=== PATIENT | female | born 1985 | race Hispanic/Latino ===

== ENCOUNTER 2020-06-22 15:27 | Day surgery (SDC) | payer SELFPAY ==
[2020-06-22 16:08] VITALS: BMI 27.2
[2020-06-22] MEDS ORDERED: hydrALAZINE 20 MG/ML VIAL SLOW IVP PRN (16:34)
[2020-06-22] MEDS ORDERED: Lactated Ringer's 1,000 ML IV SCH ×2 (16:45)
[2020-06-22] MEDS ORDERED: Famotidine/PF 20 mg/2ml Vial SLOW IVP SCH (18:00)
[2020-06-22 18:24] LABS: #Eosinphils 0.1 10x3/uL (0.0-0.5); #Monocytes 0.7 10x3/uL (0.0-1.1); #Neutrophils 8.2 10x3/uL (1.5-8.4); %Basophils 0.4 % (0.0-2.0); %Eosinophils 1.1 % (0.0-6.0); %Lymphocytes 13.1 % (18.0-47.0); %Monocytes 6.3 % (0.0-10.0); %Neutrophils 77.8 % (40.0-75.0); Hemoglobin 10.6 g/dL (12.0-15.5); Mean Corpuscular HGB CONC 34.3 g/dL (32.0-36.0); Mean Corpuscular Hemoglobin 31.6 pg (27.0-33.0); Mean Corpuscular Volume 92.2 fl (81.6-98.3); Mean Platelet Volume 10.8 fl (7.4-10.4); Platelet Count 353 10x3/uL (150-450); RBC Distribution Width 13.9 % (11.5-14.5); Red Blood Cell (RBC) Count 3.35 10x6/uL (3.90-5.03); White Blood Cell (WBC) Count 10.5 10x3/uL (3.5-10.5)
[2020-06-22 19:04] LABS: ALT (SGPT) 30 U/L (8-55); AST (SGOT) 26 U/L (5-34); Albumin 3.5 g/dL (3.5-5.0); Alkaline Phosphatase 107 U/L (40-110); Anion Gap 14 mmol/L (10-20); BUN (Urea Nitrogen) 8 mg/dL (7.0-18.7); Bilirubin, Total 0.2 mg/dL (0.2-1.2); Calc. Creatinine Clearance 120 mL/min (70-130); Calcium 8.8 mg/dL (7.8-10.44); Carbon Dioxide 21 mmol/L (22-29); Chloride 106 mmol/L (98-107); Glucose 101 mg/dL (70-105); Potassium 3.7 mmol/L (3.5-5.1); Protein, Total 6.5 g/dL (6.0-8.3); Sodium 137 mmol/L (136-145)
[2020-06-22 19:43] LABS: Bilirubin Neg (Negative); Blood, Urine Negative (Negative); Clarity Clear (Clear); Glucose, Urine (Dipstick) Normal (Negative); Ketone, Urine Negative (Negative); Leukocyte Negative (Negative); Nitrite Negative (Negative); Protein, Urine (Dipstick) Negative (Neg-Trace); Urobilinogen Normal mg/dL (Less than 2)
[2020-06-23 05:54] LABS: SARS-CoV-2 PCR by NAA DETECTED (NotDetected)
== END 2020-06-22 20:35 | disposition home or self-care (01) ==
LOC: CSHLD/OP 15:27
PROVIDERS: ATTEND Family Medicine
DX: O98.512 Other viral diseases complicating pregnancy, second trimester (principal); U07.1 COVID-19; O21.2 Late vomiting of pregnancy; O99.891 Other specified diseases and conditions complicating pregnancy; R10.10 Upper abdominal pain, unspecified; Z3A.25 25 weeks gestation of pregnancy; Z79.82 Long term (current) use of aspirin
CPT/HCPCS: 80053; 81003; 85025; 87635; 96360; 96361; 99283; S0028; U0003; U0005

== ENCOUNTER 2020-07-11 22:20 | Emergency (ER) | payer SELFPAY ==
[2020-07-11 22:48] LABS: Bilirubin Neg (Negative); Blood, Urine Negative (Negative); Clarity Clear (Clear); Glucose, Urine (Dipstick) Normal (Negative); Ketone, Urine Negative (Negative); Leukocyte Negative (Negative); Nitrite Negative (Negative); Protein, Urine (Dipstick) Negative (Neg-Trace); Specific Gravity, Urine 1.005 (1.002-1.036); Urobilinogen Normal mg/dL (Less than 2)
[2020-07-11 23:05] LABS: #Basophils 0.1 10x3/uL (0.0-0.2); #Eosinphils 0.2 10x3/uL (0.0-0.5); #Monocytes 0.9 10x3/uL (0.0-1.1); #Neutrophils 9.5 10x3/uL (1.5-8.4); %Basophils 0.5 % (0.0-2.0); %Eosinophils 1.1 % (0.0-6.0); %Lymphocytes 17.5 % (18.0-47.0); %Monocytes 7.1 % (0.0-10.0); %Neutrophils 72.4 % (40.0-75.0); Hemoglobin 11.5 g/dL (12.0-15.5); Mean Corpuscular HGB CONC 34.2 g/dL (32.0-36.0); Mean Corpuscular Hemoglobin 32.2 pg (27.0-33.0); Mean Corpuscular Volume 94.1 fl (81.6-98.3); Mean Platelet Volume 10.2 fl (7.4-10.4); Platelet Count 340 10x3/uL (150-450); RBC Distribution Width 13.7 % (11.5-14.5); Red Blood Cell (RBC) Count 3.57 10x6/uL (3.90-5.03); White Blood Cell (WBC) Count 13.2 10x3/uL (3.5-10.5)
[2020-07-11 23:08] LABS: BHCG - Serum POSITIVE (NEGATIVE); Pregs Control Background? CLEAR/WHITE (CLR/WHITE); Pregs Control Bar Appear? YES (CONTROL BAR)
[2020-07-11 23:18] LABS: ALT (SGPT) 24 U/L (8-55); AST (SGOT) 25 U/L (5-34); Albumin 3.5 g/dL (3.5-5.0); Alkaline Phosphatase 105 U/L (40-110); Anion Gap 15 mmol/L (10-20); BUN (Urea Nitrogen) 8 mg/dL (7.0-18.7); Bilirubin, Total 0.3 mg/dL (0.2-1.2); Calc. Creatinine Clearance 0 mL/min (70-130); Calcium 8.7 mg/dL (7.8-10.44); Carbon Dioxide 16 mmol/L (22-29); Chloride 107 mmol/L (98-107); Globulin 3.6 g/dL (2.4-3.5); Glucose 99 mg/dL (70-105); Potassium 3.6 mmol/L (3.5-5.1); Protein, Total 7.1 g/dL (6.0-8.3); Sodium 134 mmol/L (136-145)
[2020-07-11 23:21] LABS: Protein, Urine Random Quant Less than 10 mg/dL (1-14)
[2020-07-11] MEDS ORDERED: Acetaminophen 500 MG TAB ONE (23:44)
== END 2020-07-12 00:31 | disposition home or self-care (01) ==
LOC: CSHERS 22:20
DX: O99.891 Other specified diseases and conditions complicating pregnancy (principal); R10.30 Lower abdominal pain, unspecified; Z3A.28 28 weeks gestation of pregnancy
CPT/HCPCS: 36415; 71045; 80053; 81003; 82570; 84156; 84702; 84703; 85025; 93005

== ENCOUNTER 2024-10-10 21:38 | Day surgery (SDC) | payer OTHER ==
[2024-10-10 22:32] VITALS: BMI 28.7
[2024-10-10 23:32] LABS: #Basophils 0.06 10x3/uL (0.0-0.2); #Eosinophils 0.13 10x3/uL (0.0-0.5); #Monocytes 0.67 10x3/uL (0.0-1.1); #Neutrophils 7.30 10x3/uL (1.5-8.4); %Basophils 0.6 % (0.0-2.0); %Eosinophils 1.3 % (0.0-6.0); %Lymphocytes 18.3 % (18.0-47.0); %Monocytes 6.6 % (0.0-10.0); %Neutrophils 72.3 % (40.0-75.0); Hematocrit 34.3 % (34.9-44.5); Hemoglobin 12.1 g/dL (12.0-15.5); Mean Corpuscular Hemoglobin 31.4 pg (27.0-33.0); Mean Corpuscular Volume 89.1 fL (81.6-98.3); Platelet Count 300 10x3/uL (150-450); Red Blood Cell (RBC) Count 3.85 10x6/uL (3.90-5.03); White Blood Cell (WBC) Count 10.10 10x3/uL (3.5-10.5)
[2024-10-10] MEDS: Pantoprazole 40 MG VIAL IVP SCH (23:32)
[2024-10-10] MEDS: Ondansetron PF 4 MG/2 ML Vial IVP SCH (23:42)
[2024-10-10] MEDS: Simethicone Chewable 80 MG TAB PO PRN (23:42)
[2024-10-10 23:49] LABS: ALT (SGPT) 50 U/L (Less than 34); AST (SGOT) 39 U/L (11-34); Albumin 2.8 g/dL (3.1-4.5); Alkaline Phosphatase 279 U/L (40-110); Anion Gap 13 mmol/L (10-20); BUN (Urea Nitrogen) 9 mg/dL (7.0-18.7); Bilirubin, Total 0.3 mg/dL (0.3-1.2); Calc. Creatinine Clearance 137 mL/min (70-130); Calcium 8.8 mg/dL (7.8-10.44); Carbon Dioxide 18 mmol/L (22-29); Chloride 109 mmol/L (98-107); Globulin 3.7 g/dL (2.4-3.5); Glucose 103 mg/dL (70-105); Lipase 29 U/L (8-78); Potassium 4.1 mmol/L (3.5-5.1); Sodium 136 mmol/L (136-145)
[2024-10-11] MEDS: Lidocaine 2% Viscous Solution 10 ML, Aluminum & Magnesium Hydroxide 30 ML SSW SCH (00:26)
[2024-10-11 00:59] LABS: Glucose, Urine (Dipstick) Normal (Negative); Leukocyte Negative (Negative); Protein, Urine (Dipstick) Negative (Neg-Trace); Specific Gravity, Urine 1.005 (1.005-1.030)
[2024-10-11 01:06] LABS: Bacteria/HPF None Seen HPF (None Seen); CAUTI Indications for Culture Pregnancy; RBC/HPF None Seen HPF (0-3); WBC/HPF None Seen HPF (0-3)
[2024-10-11 01:07] LABS: Urine Culture Reflex Yes Yes
== END 2024-10-11 01:44 | disposition home or self-care (01) ==
LOC: CSHLD/OP 21:38
PROVIDERS: ATTEND Family Medicine
DX: O99.891 Other specified diseases and conditions complicating pregnancy (principal); R10.13 Epigastric pain; R74.01 Elevation of levels of liver transaminase levels; R68.83 Chills (without fever); R11.0 Nausea; O09.523 Supervision of elderly multigravida, third trimester; O24.410 Gestational diabetes mellitus in pregnancy, diet controlled; Z3A.36 36 weeks gestation of pregnancy; Z87.59 Personal history of other complications of pregnancy, childbirth and the puerperium
CPT/HCPCS: 76700; 76819; 80053; 81001; 83690; 85025; 87086; 96360; 96372; 96374; 99285; J2405; J2470; J2550

== ENCOUNTER 2024-10-28 05:58 | Inpatient (IN) | payer MEDICAID, OTHER ==
[2024-10-27 11:04] LABS: Hematocrit 39.8 % (34.9-44.5); Hemoglobin 13.4 g/dL (12.0-15.5); Platelet Count 265 10x3/uL (150-450)
[2024-10-27 11:48] LABS: Syphilis Antibody Index 0.09 S/CO (<1.00 Non-Reactive)
[2024-10-27 11:50] LABS: Hep B Surf Ag Non-Reactive S/CO (NonReactive)
[2024-10-28 06:48] VITALS: BMI 28.5
[2024-10-28] MEDS ORDERED: Diphenoxylate HCl/Atropine Tablet PO PRN ×2 (06:50→20:15)
[2024-10-28] MEDS ORDERED: Oxytocin 30 units/NS 500 ML 500 ML IV SCH (06:50)
[2024-10-28] MEDS ORDERED: Ondansetron PF 4 MG/2 ML Vial IVP PRN ×3 (06:50→08:12)
[2024-10-28] MEDS ORDERED: Bicitra 30 ML UDCUP PO PRN (06:50)
[2024-10-28] MEDS ORDERED: Methylergonovine 0.2 MG/ML VIAL IM PRN (06:50)
[2024-10-28] MEDS ORDERED: hydrALAZINE 20 MG/ML VIAL SLOW IVP PRN ×2 (06:50→12:46)
[2024-10-28] MEDS ORDERED: Tranexamic Acid 1,000 MG/10 ML VIAL IVP PRN (06:50)
[2024-10-28] MEDS ORDERED: Carboprost 250 MCG/ML AMP IM PRN (06:50)
[2024-10-28] MEDS: Famotidine/PF 20 mg/2ml Vial SLOW IVP PRN (07:43)
[2024-10-28] MEDS ORDERED: Meperidine HCl/PF 25 MG (1 mL) VIAL SLOW IVP PRN (08:12)
[2024-10-28] MEDS ORDERED: diphenhydrAMINE 50 MG/ML VIAL IVP PRN (08:12)
[2024-10-28] MEDS ORDERED: HYDROmorphone 0.5 MG/0.5 ML SYRINGE SLOW IVP PRN (08:12)
[2024-10-28] MEDS ORDERED: Ketorolac Tromethamine 30 MG (1 mL) VIAL IVP SCH (08:15)
[2024-10-28] MEDS ORDERED: Ketorolac Tromethamine 30 MG (1 mL) VIAL IVP PRN (12:00)
[2024-10-28] MEDS ORDERED: diphenhydrAMINE 25 MG CAP PO PRN (12:46)
[2024-10-28] MEDS ORDERED: Lanolin Ointment 7 GM TUBE TOP PRN (12:46)
[2024-10-28] MEDS ORDERED: Bisacodyl 10 MG SUPP PR PRN (12:46)
[2024-10-28] MEDS: Azithromycin 500 MG VIAL ONE (12:52)
[2024-10-28] MEDS: Azithromycin 500 MG in Sodium Chloride 0.9% 250 ML 250 ML IVPB SCH (12:53)
[2024-10-28] MEDS: Oxytocin 10 UNITS/ML VIAL ONE ×2 (12:53→12:54)
[2024-10-28] MEDS: Ondansetron PF 4 MG/2 ML Vial ONE ×2 (12:53→12:54)
[2024-10-28] MEDS: CEFAZOLIN 2 GM VIAL ONE (12:53)
[2024-10-28] MEDS: Phenylephrine 40 MG/NS 250 ML 250 ML ONE (12:53)
[2024-10-28] MEDS: Dexamethasone 10 MG/ML VIAL ONE (12:54)
[2024-10-28] MEDS: Ketorolac Tromethamine 30 MG (1 mL) VIAL IVP SCH (13:04)
[2024-10-28] MEDS: Boostrix 0.5 ML (Tdap) VIAL (>/=7 yrs of age) IM ONE (13:05)
[2024-10-28] MEDS: Ondansetron PF 4 MG/2 ML Vial IVP PRN (17:23)
[2024-10-28] MEDS ORDERED: Meperidine HCl/PF 25 MG (1 mL) VIAL IM PRN (20:15)
[2024-10-28] MEDS: Ferrous Sulfate 325 MG TAB PO SCH (21:15)
[2024-10-29 05:46] LABS: Hematocrit 31.4 % (34.9-44.5); Hemoglobin 10.6 g/dL (12.0-15.5); Mean Corpuscular Hemoglobin 30.7 pg (27.0-33.0); Mean Corpuscular Volume 91.0 fL (81.6-98.3); Platelet Count 239 10x3/uL (150-450); Red Blood Cell (RBC) Count 3.45 10x6/uL (3.90-5.03); White Blood Cell (WBC) Count 17.41 10x3/uL (3.5-10.5)
[2024-10-29] MEDS: HYDROcodone/Acetaminophen 5/325 mg Tablet PO PRN (11:15)
[2024-10-29] MEDS: Ibuprofen 800 MG TAB PO SCH (13:57)
[2024-10-29] MEDS: Simethicone Chewable 80 MG TAB PO PRN (18:26)
[2024-10-30] MEDS: HYDROcodone/Acetaminophen 5/325 mg Tablet PO PRN (13:46)
[2024-10-31 08:34] VITALS: BP 123/75; TEMP 98.1
== END 2024-10-31 17:50 | disposition home or self-care (01) | DRG 788 ==
LOC: CSHLD 05:58 → CSHPED 11:30
PROVIDERS: ADMIT Family Medicine; ATTEND Family Medicine
PROC: 10D00Z1 Extraction of Products of Conception, Low, Open Approach (ICD-10-PCS; principal; 2024-10-28)
DX: O24.424 Gestational diabetes mellitus in childbirth, insulin controlled (principal); Z3A.39 39 weeks gestation of pregnancy; Z37.0 Single live birth; O34.211 Maternal care for low transverse scar from previous cesarean delivery; Z79.899 Other long term (current) drug therapy; Z79.82 Long term (current) use of aspirin
CPT/HCPCS: 36415; 36416; 51702; 85014; 85018; 85027; 85049; 86780; 86850; 86870; 86900; 86901; 86905; 86922; 87340; C1889; J1100; J1308; J1885; J2274; J2405; J2590; J7120